=== PATIENT | male | born 1935 | race Caucasian/White ===

== ENCOUNTER 2018-11-13 02:46 | Inpatient (IN) | payer MEDICARE, OTHER ==
[~2018-11-13] VITALS: Ht 167.6 cm; Wt 58.3 kg
[2018-11-13] VITALS (7 sets, daily range): BP systolic 121–147; BP diastolic 65–96; Ht 167.6 cm; Wt 58.3 kg
[2018-11-13] MEDS ORDERED: VITAMIN B-1250 MCG (02:54)
--- NOTE | 2018-11-13 03:31 | NUR ---
PT PLACED ON 2L O2 VIA NC DUE TO O2 SAT 91%
--- NOTE | 2018-11-13 04:28 | NUR ---
PT ARRIVED VIA STRETCHER FROM [place] AT 0248 HRS. PT DENIED ANY DISCOMFORT. WALKED FROM STRETCHER TO BED. GAIT SHUFFLING AND SLIGHTLY UNSEADY WITH ASSIST X2. VSS. SR PER CM HR 79. IV TO RFA SL. LUNGS DIMINISHED IN BASES BILAT. SANTO. [place]. ALERT AND ORIENTED TO PERSON, PLACE AND TIME. O2 2LNC. SMALL RED SPOT NOTED OT L SIDE OF ABD. SMALL BRUISE NOTED TO SMALL OF BACK. SR UP X2, CALL LIGHT WITHIN REACH AND BED ALRM ON.
--- NOTE | 2018-11-13 05:53 | NUR ---
PT RSTING WITH EYES CLOSED. RESP EVEN AND REGULAR. SR UP X2, CALL LIGHT WITHIN REACH AND AT BEDSIDE.
[2018-11-13 06:21] LABS: BASOPHILS 0.4 % (0-2); EOSINOPHILS 1.9 % (0-7); HEMATOCRIT 38.6 % (42.0-54.0); HEMOGLOBIN 12.5 g/dL (13.5-17.5); IMMATURE GRANULOCYTES 0.3 % (0-5); LYMPHOCYTES 11.8 % (15-50); MCH 29.8 pg (26.0-34.0); MCHC 32.4 g/dL (31.0-37.0); MCV 91.9 fL (80.0-100.0); MEAN PLATELET VOLUME 10.5 fL (7.4-10.4); MONOCYTES 11.7 % (2-11); NEUTROPHILS 73.9 % (40-80); PLATELET COUNT 247 10x3/uL (130-400); RDW 14.2 % (11.5-14.5); WBC 7.8 10x3/uL (4.8-10.8)
[2018-11-13 06:46] LABS: CARBON DIOXIDE 27.9 mmol/L (21.0-32.0); CREATININE - SERUM 1.5 mg/dL (0.6-1.3)
[2018-11-13 06:49] LABS: POTASSIUM - SERUM 2.9 mmol/L (3.5-5.1)
--- NOTE | 2018-11-13 11:56 | CN ---
PATIENT NAME:AMELIA WARD MEDICAL RECORD: [id number] : 39 LOCATION:D.[facility] D.2119 ADMIT DATE: 11/13/18 ACCOUNT: [id number] CONSULTING PHYSICIAN: MIN GEORGE MD REFERRING PHYSICIAN: JARETH PADGETT MD DATE OF CONSULTATION: 11/13/2018 HISTORY OF PRESENT ILLNESS: This is an 83-year-old gentleman transferred from [place] for a higher level of care. Apparently, has a history of congestive heart failure and stenting in the past, difficult history from both he and his . Apparently, he has been short of breath over the past week, was flu positive 2-3 weeks ago. reports weight loss, constitutional symptomatology as well. Does describe some orthopnea, PND, and lower extremity edema. PAST MEDICAL HISTORY: Includes: 1. History of coronary artery disease. 2. Congestive heart failure. ALLERGIES: None known. MEDICATIONS: Unknown by 's report. SOCIAL HISTORY: , lives in [place], nonsmoker, nondrinker. does have to assist in ADLs. REVIEW OF SYSTEMS: The patient reports easy bruising but reports no swollen glands. The patient reports no fever, no night sweats, no significant weight gain, no significant weight loss. No significant exercise tolerance. The patient reports no dry eyes, no irritation, no vision change. Patient reports no difficulty hearing and no ear pain. Patient reports no frequent nose bleeds or nose and sinus problems. Patient reports on arm pain on exertion. No shortness of breath while lying down. No history of heart murmur. Patient reports no cough, no wheezing or coughing up blood. Patient reports no abdominal pain, no vomiting. Normal appetite. No diarrhea and not vomiting blood. No nausea and no constipation. Patient reports no incontinence. No difficulty urinating. No hematuria. No increased frequency. Patient reports no muscle aches. No weakness, no arthralgias, no back pain. No swelling of the extremities. Patient reports no abnormal mole, no jaundice, no rashes. Reports no loss of consciousness. No weakness and no numbness. No seizures, dizziness, or headaches. The patient reports no depression, no sleep disturbance, feeling safe in a relationship and no alcohol abuse. Patient reports on fatigue. Reports no runny nose or sinus pressure. No itching, no hives, and no frequent sneezing. PHYSICAL EXAMINATION: GENERAL: Frail appearing elderly gentleman in no acute distress, appears stated age. HEENT: Normocephalic, atraumatic. NECK: No bruits noted. HEART: Regular. LUNGS: Decreased air excursion in both bases. ABDOMEN: Soft, nontender. EXTREMITIES: Pulses decreased 1+ with no edema. IMPRESSION: Certainly symptoms could be consistent with cardiomyopathy. He CONSULT REPORT [id number] AMELIA WARD received Lasix and has improved symptomatically. We will check echocardiographic study. Further recommendations based on the above. TRANSINT:[id number] Voice Confirmation ID: [id number] DOCUMENT ID: [id number] MIN GEORGE MD at 1156 CC: [id number] DICTATION DATE: 11/13/18 1018 GEODESIST: 11/13/18 1118 ADM IN [facility] [address] [place] [address]
--- NOTE | 2018-11-13 13:31 | NUR ---
C/O LEG CRAMPS. FINANCIAL PROFESSIONAL NOTIFIED.
[2018-11-13 15:42] LABS: % SATURATION 8 % (15-55); IRON 31 ug/dl (35-150); TOTAL IRON BIND CAPACITY 381 ug/dl (260-445); UNSAT IRON BIND CAPACITY 350 ug/dl (150-375)
[2018-11-13 16:00] LABS: CKMB 2.3 U/L (0.0-3.6); CREATINE KINASE 58 UL (21-232)
[2018-11-13 16:07] LABS: TROPONIN-I 0.078 ng/mL (0.000-0.060)
--- NOTE | 2018-11-13 19:58 | NUR ---
RECIEVED RESTING IN BED WITH EYES CLOSED. NO S/S OF DISTRESS OBSERVED. SPOUSE AT BEDSIDE. WILL DEFER ASSESSMENT AT THIS TIME. TO ALLOW FOR REST.
--- NOTE | 2018-11-13 20:31 | NUR ---
NOTIFIED DR. RODRIGUEZ (GARAGE DOOR SERVICE TECHNICIAN) WITH NEW ORDER FOR MORPHINE 4 MG Q 4HPRN.
[2018-11-13 20:46] LABS: CKMB 2.5 U/L (0.0-3.6); CREATINE KINASE 66 UL (21-232)
[2018-11-13 20:48] LABS: TROPONIN-I 0.097 ng/mL (0.000-0.060)
--- NOTE | 2018-11-14 01:29 | NUR ---
DR. PADGETT NOTIFIED OF CHANGE IN PATIENT, LAST KNOWN WELL TIME BEING 1899, NO NEW ORDERS RECEIVED AT THIS TIME.
--- NOTE | 2018-11-14 01:30 | NUR ---
CALLED INTO THE ROOM BY STAFF. PT WAS ATTEMPTING TO GET OUT OF THE BED BUT UNABLE. UNABLE TO ANSWER QUESTIONS. SPOUSE AT BEDSIDE AND ATTEMPTED TO GET HIM TO ANSWER QUESTIONS. PT HAD JUST WOKE UP PER SPOUSE. APPEARED CONFUSED AND DISORIENTED. TOOK A DRINK OF WATER WITHOUT DIFFICULTY. MOVING ALL EXTREMITIES. NOT FOLLOWING COMMANDS. GAVE HIM TIME TO WAKE UP AND RETURNED TO ASSESS MENTATION. STILL UNABLE TO FOLLOW COMMANDS. CALLED RAPID. DR. PADGETT NOTIFIED WITH NO NEW ORDERS. WILL DO NEURO CHECKS AND DOCUMENT.
--- NOTE | 2018-11-14 01:42 | NUR ---
PUPILS ARE EQUAL ROUND AND BRISK REACTION. ABLE TO MOVE ALL EXTREMITIES. SPEECH IS IMPROVING. WILL CONT TO ASSESS.
--- NOTE | 2018-11-14 02:32 | NUR ---
NEURO CHECK COMPLETED. SPEECH STILL SLURRED. ABLE TO MOVE RIGHT SIDE OF HIS MOUTH A LITTLE WHEN ATTEMPTING TO SPEAK. MOVES ALL EXTREMITIES ON COMMAND. WILL CONT. TO ASSESS.
--- NOTE | 2018-11-14 03:28 | NUR ---
NEURO CHECK COMPLETED. ABLE TO MOVE ALL EXTREMITIES. PUPILS EQUAL ROUND AND REACTIVE. SPEECH STILL SLURRED.
[2018-11-14 03:50] VITALS: BP 142/85
[2018-11-14 04:59] LABS: BASOPHILS 0.3 % (0-2); EOSINOPHILS 2.8 % (0-7); HEMATOCRIT 38.1 % (42.0-54.0); HEMOGLOBIN 12.2 g/dL (13.5-17.5); IMMATURE GRANULOCYTES 0.3 % (0-5); LYMPHOCYTES 14.6 % (15-50); MCH 29.5 pg (26.0-34.0); MCV 92.3 fL (80.0-100.0); MEAN PLATELET VOLUME 10.1 fL (7.4-10.4); MONOCYTES 11.8 % (2-11); NEUTROPHILS 70.2 % (40-80); PLATELET COUNT 255 10x3/uL (130-400); RBC 4.13 10x6/uL (4.20-6.10)
[2018-11-14 05:45] LABS: CALC OSMOLALITY 290 mosm/kg (275-300); CALCIUM 8.5 mg/dL (8.5-10.1); CARBON DIOXIDE 26.8 mmol/L (21.0-32.0); CHLORIDE - SERUM 102 mmol/L (98-107); CKMB 3.2 U/L (0.0-3.6); CREATINE KINASE 66 UL (21-232); CREATININE - SERUM 1.6 mg/dL (0.6-1.3); GLUCOSE 120 mg/dL (74-106); POTASSIUM - SERUM 3.4 mmol/L (3.5-5.1); SODIUM 142 mmol/L (136-145); UREA NITROGEN 31 mg/dL (7-18); eGFR NON AFRICAN AMERICAN 44 mL/min (90-120)
[2018-11-14 05:52] LABS: TROPONIN-I 0.084 ng/mL (0.000-0.060)
--- NOTE | 2018-11-14 05:52 | NUR ---
NEURO CHECK COMPLETED PUPILS EQUAL ROUND AND REACTIVE. WEAKNESS TO RIGHT SIDE BYT ABLE TO MOVE ALL EXTREMITIES. SPEECH STILL SLURRED. ABLE TO SAY HELLO AND UNDERSTOOD. FOLLOWS COMMANDS. SPOUSE STILL AT BEDSIDE.
--- NOTE | 2018-11-14 09:32 | NUR ---
UNABLE TO SPEAK THIS AM. WEAKNESS NOTED TO RIGHT SIDE. ABLE TO MOVE ARMS AND LEGS. PUPILS REACTIVE. JANENE LINK NOTIFIED OF SYMPTOMS. NEW ORDERS GIVEN.
[2018-11-14 10:04] VITALS: BP 165/41
[2018-11-14 10:18] LABS: FOLATE (FOLIC ACID) - SERUM >20.0 ng/mL (>3.0)
--- NOTE | 2018-11-14 12:35 | NUR ---
LEAVING FOR MRI BY STRETCHER.
--- NOTE | 2018-11-14 16:41 | MORECARE ---
CASE MANAGEMENT DISCHARGE SUMMARY PATIENT: AMELIA WARD UNIT: [id number] ADM DATE: 11/13/18 AGE: 83 : 37 SEX: M ROOM/BED: D.3626 AUTHOR: KRISTEL MARTEL PHYSICIAN: REFERRING PHYSICIAN: JARETH PADGETT MD DATE OF SERVICE: 11/14/18 Discharge Plan Patient Name: AMELIA WARD Facility: [facility]:[place] : 1935 Planned Disposition: Home Anticipated Discharge Date: Discharge Date: Expected LOS: Initial Reviewer: [email or web address] Initial Review Date: 11/13/2018 Generated: 11/14/18 5:41 pm Comments DCP- Discharge Planning Updated by [email or web address]: Tre Da Silva on 11/14/18 3:[address] Patient Name: AMELIA WARD Admission Status: ER Accout number: [id number] Admission Date: 11-13-2018 : 1935 Admission Diagnosis: Attending: JARETH PADGETT Current LOS: 1 Anticipated DC Date: Planned Disposition: Home Primary Insurance: MEDICARE A & B Discharge Planning Comments: CM RECEIVED HOSPICE CONSULT ORDER, MET WITH PT AND FAMILY IN ROOM TO DISCUSS DISCHARGE PLANNING AND NEEDS. AMELIA WARD provided verbal consent to discuss current and ongoing needs with/in the presence of: SPOUSE AND CHILDREN WITH HEAD NOD. PT'S SPOUSE REPORTS PT LIVING AT HOME INDEPENDENTLY WITH HER UNTIL NOW. PT DID HAVE HER ASSISTANCE NEEDED WITH BATHING BUT WAS OTHER CA TAKING CARE OF HIMSELF. PT HAS CPAP WITH NO MEDICAL EQUIPMENT PROVIDER PREFERENCE. PT HAS NO OUTSIDE SERVICES ASSISTING IN THE HOME. CM DISCUSSED AVAILABILITY OF HOME HEALTH, REHAB SERVICES AND MEDICAL EQUIPMENT. CM DISCUSSED HOSPICE PROVIDERS AND LOCATIONS. PT'S DAUGHTER IS AGAINST HOSPICE, PT'S SPOUSE WANTS TO TALK TO THE DOCTOR ABOUT IT FURHTER. PT NODS UNDERSTANDING OF WHAT THE DOCTOR HAS TOLD HIM REGARDING HIS CARE. PT'S CHILDREN REPORT THEY MAY BE TAKING PT HOME AND WILL ASSIST WITH PT'S CARE IF THAT IS WHAT HE WANTS, WITH OR WITHOUT HOSPICE. PT'S CHILDREN WANTED TO MAKE SURE THAT PT'S SPOUSE GETS "EVERYTHING" WHEN PT PASSES AWAY ARE CONCERED THAT PT NEVER COMPLETED A WILL. CM EXPLAINED THAT THEY WOULD NEED TO SEEK ADVISE OF AN HOT WATER HEATER INSTALLER. PT AND SPOUSE TO CONSIDER OPTIONS AND WILL DISCUSS WITH FAMILY AND DOCTOR. CM PROVIDED PT AND FAMILY WITH CM CONTACT INFORMATION AND HOSPITAL FELT STRIP FINISHER INFORMATION. PT'S CHILDRED ARE SANJEEV EASLEY AND GARRISON. CM WAITING PT AND FAMILY TO DISCUSS HOSPICE AND MAKE FURTHER DECISIONS FOR DISCHARGE PLANNING. Branch Operations Coordinator: Tre Da Silva DCPIA - Discharge Planning Initial Assessment Updated by [email or web address]: Tre Da Silva on 11/14/18 4:33 pm * Is the patient Alert and Oriented? Yes * How many steps to enter\\exit or inside your home? * PCP DR. BIRD IN [place] * Pharmacy [facility] [place] * Preadmission Environment Home with Family * ADLs Partial Dependent * Partial ADLs (Assistance needed) Bathing * Equipment CPAP * Other Equipment NO MEDICAL EQUIPMENT PROVIDER PREFERENCE * List name and contact numbers for known caregivers / representatives who currently or will assist patient after discharge: DOC WARD, SPOUSE, * Verbal permission to speak to the caregivers and representatives has been obtained from the patient. Yes * Community resources currently utilized None * Please name any agencies selected above. NONE * Additional services required to return to the preadmission environment? Yes * Can the patient safely return to the preadmission environment? Yes * Has this patient been hospitalized within the prior 30 days at any hospital? No Patient Name: AMELIA WARD Page [id number] at 1641 All edits/amendments must be made on the electronic document DICTATION DATE: 11/14/181640 JIGMAN: ALBERT 11/14/181640 RPT#: [id number] DC DATE: STATUS: ADM IN [facility] [address] [place] [address] END OF REPORT
[2018-11-14 20:00] VITALS: BP 148/84
[2018-11-15 00:30] VITALS: BP 150/69
[2018-11-15 04:00] VITALS: BP 145/84
--- NOTE | 2018-11-15 04:14 | NUR ---
I have reviewed this patient and I concur with the Shift Assessment completed by the Licensed Practical Nurse today this shift.
--- NOTE | 2018-11-15 04:25 | NUR ---
RESTING WITH EYES CLOSED, RESPERATIONS EVEN, NO S/S DISTRESS NOTED.
[2018-11-15 06:12] LABS: BASOPHILS 0.3 % (0-2); EOSINOPHILS 2.4 % (0-7); HEMATOCRIT 41.1 % (42.0-54.0); HEMOGLOBIN 13.1 g/dL (13.5-17.5); IMMATURE GRANULOCYTES 0.2 % (0-5); LYMPHOCYTES 14.6 % (15-50); MCH 29.5 pg (26.0-34.0); MCHC 31.9 g/dL (31.0-37.0); MCV 92.6 fL (80.0-100.0); MONOCYTES 14.1 % (2-11); NEUTROPHILS 68.4 % (40-80); PLATELET COUNT 251 10x3/uL (130-400); RBC 4.44 10x6/uL (4.20-6.10); RDW 14.1 % (11.5-14.5); WBC 6.2 10x3/uL (4.8-10.8)
[2018-11-15 06:46] LABS: ANION GAP 16.9 mmol/L (8-16); CALCIUM 8.7 mg/dL (8.5-10.1); CREATININE - SERUM 1.6 mg/dL (0.6-1.3); POTASSIUM - SERUM 3.9 mmol/L (3.5-5.1)
--- NOTE | 2018-11-15 09:32 | NUR ---
ASSESSMENT DONE. ASSESSMENT DONE.
[2018-11-15 09:45] VITALS: BP 147/86
--- NOTE | 2018-11-15 10:32 | NUR ---
I have reviewed this patient and I concur with the Shift Assessment completed by the Licensed Practical Nurse today this shift.
--- NOTE | 2018-11-15 15:47 | MORECARE ---
CASE MANAGEMENT DISCHARGE SUMMARY PATIENT: AMELIA WARD UNIT: [id number] ADM DATE: 11/13/18 AGE: 83 : 37 SEX: M ROOM/BED: D.9354 AUTHOR: KRISTEL MARTEL PHYSICIAN: REFERRING PHYSICIAN: JARETH PADGETT MD DATE OF SERVICE: 11/15/18 Discharge Plan Patient Name: AMELIA WARD Facility: [facility]:[place] : 1935 Planned Disposition: Home with Home Health Anticipated Discharge Date: 11/15/18 Discharge Date: Expected LOS: 2 Initial Reviewer: [email or web address] Initial Review Date: 11/13/2018 Generated: 11/15/18 4:46 pm DCP- Discharge Planning Updated by [email or web address]: Tre Da Silva on 11/14/18 3:[address] Patient Name: AMELIA WARD Admission Status: ER Accout number: [id number] Admission Date: 11-13-2018 : 1935 Admission Diagnosis: Attending: JARETH PADGETT Current LOS: 1 Anticipated DC Date: Planned Disposition: Home Primary Insurance: MEDICARE A & B Discharge Planning Comments: CM RECEIVED HOSPICE CONSULT ORDER, MET WITH PT AND FAMILY IN ROOM TO DISCUSS DISCHARGE PLANNING AND NEEDS. AMELIA WARD provided verbal consent to discuss current and ongoing needs with/in the presence of: SPOUSE AND CHILDREN WITH HEAD NOD. PT'S SPOUSE REPORTS PT LIVING AT HOME INDEPENDENTLY WITH HER UNTIL NOW. PT DID HAVE HER ASSISTANCE NEEDED WITH BATHING BUT WAS OTHER CA TAKING CARE OF HIMSELF. PT HAS CPAP WITH NO MEDICAL EQUIPMENT PROVIDER PREFERENCE. PT HAS NO OUTSIDE SERVICES ASSISTING IN THE HOME. CM DISCUSSED AVAILABILITY OF HOME HEALTH, REHAB SERVICES AND MEDICAL EQUIPMENT. CM DISCUSSED HOSPICE PROVIDERS AND LOCATIONS. PT'S DAUGHTER IS AGAINST HOSPICE, PT'S SPOUSE WANTS TO TALK TO THE DOCTOR ABOUT IT FURHTER. PT NODS UNDERSTANDING OF WHAT THE DOCTOR HAS TOLD HIM REGARDING HIS CARE. PT'S CHILDREN REPORT THEY MAY BE TAKING PT HOME AND WILL ASSIST WITH PT'S CARE IF THAT IS WHAT HE WANTS, WITH OR WITHOUT HOSPICE. PT'S CHILDREN WANTED TO MAKE SURE THAT PT'S SPOUSE GETS "EVERYTHING" WHEN PT PASSES AWAY ARE CONCERED THAT PT NEVER COMPLETED A WILL. CM EXPLAINED THAT THEY WOULD NEED TO SEEK ADVISE OF AN SUPERVISOR INSPECTION DEPARTMENT. PT AND SPOUSE TO CONSIDER OPTIONS AND WILL DISCUSS WITH FAMILY AND DOCTOR. CM PROVIDED PT AND FAMILY WITH CM CONTACT INFORMATION AND HOSPITAL CASE RESOLUTION SPECIALIST INFORMATION. PT'S CHILDRED ARE SANJEEV EASLEY AND GARRISON. CM WAITING PT AND FAMILY TO DISCUSS HOSPICE AND MAKE FURTHER DECISIONS FOR DISCHARGE PLANNING. Save All Operator: Tre Da Silva DCPIA - Discharge Planning Initial Assessment Updated by [id number]: Tre Da Silva on 11/14/18 4:33 pm * Is the patient Alert and Oriented? Yes * How many steps to enter\\exit or inside your home? * PCP DR. BIRD IN [place] * Pharmacy [facility] [place] * Preadmission Environment Home with Family * ADLs Partial Dependent * Partial ADLs (Assistance needed) Bathing * Equipment CPAP * Other Equipment NO MEDICAL EQUIPMENT PROVIDER PREFERENCE * List name and contact numbers for known caregivers / representatives who currently or will assist patient after discharge: DOC WARD, SPOUSE, * Verbal permission to speak to the caregivers and representatives has been obtained from the patient. Yes * Community resources currently utilized None * Please name any agencies selected above. NONE * Additional services required to return to the preadmission environment? Yes * Can the patient safely return to the preadmission environment? Yes * Has this patient been hospitalized within the prior 30 days at any hospital? No External [facility]iders [facility] Next Contact Date: 11/15/2018 Service Request Date: Service Type: Resolution: Reviewer: Comments: Coverage Notice Reviewer: [email or web address] Lauren Da Silva Notice Issued Date-Time: 11/15/2018 14:55 Notice Type: IM Discharge Notice Notice Delivered To: Family Member Relationship to Patient: Spouse Brick Or Block Maker Name: DOC WARD Delivery Method: HAND - Hand Delivered Amrita Days: Prior Verbal Notification: Recipient Understood Notice: Yes Recipient Signature: Yes Med Rec Note Co-signed by Attending: Coverage Notice Comment: Reviewer: [email or web address] Lauren Da Silva Notice Issued Date-Time: 11/15/2018 14:55 Notice Type: Patient Choice Letter Notice Delivered To: Family Member Relationship to Patient: Spouse Brick Or Block Maker Name: DOC Delivery Method: HAND - Hand Delivered Amrita Days: Prior Verbal Notification: Recipient Understood Notice: Yes Recipient Signature: Yes Med Rec Note Co-signed by Attending: Coverage Notice Comment: [employer] [facility] PATIENT FOR MEDICAL EQUIPMENT Last DP export: 11/14/18 3:41 p Patient Name: AMELIA WARD Page 10405 at 1547 All edits/amendments must be made on the electronic document DICTATION DATE: 11/15/181545 PIPELINE ENGINEER: ALBERT 11/15/181545 RPT#: [id number] DC DATE: STATUS: ADM IN [facility] [address] [place] [address] END OF REPORT
--- NOTE | 2018-11-15 16:05 | MORECARE ---
CASE MANAGEMENT DISCHARGE SUMMARY PATIENT: AMELIA WARD UNIT: [id number] ADM DATE: 11/13/18 AGE: 83 : 37 SEX: M ROOM/BED: D.2004 AUTHOR: DELONTE,DOC PHYSICIAN: REFERRING PHYSICIAN: JARETH PADGETT MD DATE OF SERVICE: 11/15/18 Discharge Plan Patient Name: AMELIA WARD Facility: [facility]:[place] : 1935 Planned Disposition: Home with Home Health Anticipated Discharge Date: 11/15/18 Discharge Date: Expected LOS: 2 Initial Reviewer: [email or web address] Initial Review Date: 11/13/2018 Generated: 11/15/18 5:05 pm Comments DCP- Discharge Planning Updated by [email or web address]: Tre Da Silva on 11/15/18 3:[address] Patient Name: AMELIA WARD Encounter No: [id number] : 1935 Primary Insurance: MEDICARE A & B Anticipated DC Date: 11-15-2018 Planned Disposition: Home with Home Health External Planned Provider: [email or web address] [facility] DCP follow-up note: CM SPOKE TO DR. PADGETT WHO ADVISED THAT PT CAN DISCHARGE HOME TODAY IF OXYGEN IS ARRANGED IF PT QUALIFIES AND NEEDS WALK TESTING. CM OBTAINED OXYGEN TESTING ORDERS, WAS ADVISED REPIRATORY THERAPIST WAS WORKING ON EXTUBATION AND WOULD TAKE CARE OF TESTING SHORTLY. CM MET WITH PT AND SPOUSE IN ROOM, PT INDICATES HE IS READY TO GO HOME. CM DISCUSSED PROCESS OF OXYGEN TESTING AND IF QUALIFIES, CM TO ARRANGE HOME OXYGEN. CM DISCUSSED AVAILABILITY OF HOME HEALTH, REHAB SERVICES AND OTHER MEDICAL EQUIPMENT. PT POINTS TO . PT'S SPOUSE PROVIDED WITH LISTINGS FOR MEDICAL EQUIPMENT PROVIDERS AND HOME HEALTH PROVIDERS. PT'S SPOUSE SIGNED CHOICE FOR [facility] AND [facility] PATIENT FOR OXYGEN IF PT QUALIFIES. SPOUSE TO TRANSPORT HOME AT DISCHARGE. IMPORTANT MESSAGE FROM MEDICARE PROVIDED AND EXPLAINED. CM CALLED [facility], [place] OFFICE, , SPOKE TO SHIRA WHO ACCEPTED REFERRAL FOR HOME HEALTH AND INSTRUCTED CM TO CALL WHEN PT DISCHARGES HOME. CM FAXED REFERRAL TO [facility] AT [phone]. FOR DISCHARGE FAX ORDER AND DISCHARGE INFORMATION TO [facility] OFFICE AT [phone], CALL AND NOTIFY [facility] OF DISCHARGE HOME AT [phone]. CM TO ARRANGE HOME AND PORTABLE OXYGENWITH [facility] PATIENT IF PT QUALIFIES DURING TESTING BY RESPIRATORY THERAPY PRIOR TO DISCHARGE HOME. Tre Da Silva, CASE MANAGEMENT DCP- Discharge Planning Updated by [email or web address]: Tre Da Silva on 11/14/18 3:[address] Patient Name: AMELIA WARD Admission Status: ER Accout number: [id number] Admission Date: 11-13-2018 : 1935 Admission Diagnosis: Attending: JARETH PADGETT Current LOS: 1 Anticipated DC Date: Planned Disposition: Home Primary Insurance: MEDICARE A & B Discharge Planning Comments: CM RECEIVED HOSPICE CONSULT ORDER, MET WITH PT AND FAMILY IN ROOM TO DISCUSS DISCHARGE PLANNING AND NEEDS. AMELIA WARD provided verbal consent to discuss current and ongoing needs with/in the presence of: SPOUSE AND CHILDREN WITH HEAD NOD. PT'S SPOUSE REPORTS PT LIVING AT HOME INDEPENDENTLY WITH HER UNTIL NOW. PT DID HAVE HER ASSISTANCE NEEDED WITH BATHING BUT WAS OTHER CA TAKING CARE OF HIMSELF. PT HAS CPAP WITH NO MEDICAL EQUIPMENT PROVIDER PREFERENCE. PT HAS NO OUTSIDE SERVICES ASSISTING IN THE HOME. CM DISCUSSED AVAILABILITY OF HOME HEALTH, REHAB SERVICES AND MEDICAL EQUIPMENT. CM DISCUSSED HOSPICE PROVIDERS AND LOCATIONS. PT'S DAUGHTER IS AGAINST HOSPICE, PT'S SPOUSE WANTS TO TALK TO THE DOCTOR ABOUT IT FURHTER. PT NODS UNDERSTANDING OF WHAT THE DOCTOR HAS TOLD HIM REGARDING HIS CARE. PT'S CHILDREN REPORT THEY MAY BE TAKING PT HOME AND WILL ASSIST WITH PT'S CARE IF THAT IS WHAT HE WANTS, WITH OR WITHOUT HOSPICE. PT'S CHILDREN WANTED TO MAKE SURE THAT PT'S SPOUSE GETS "EVERYTHING" WHEN PT PASSES AWAY ARE CONCERED THAT PT NEVER COMPLETED A WILL. CM EXPLAINED THAT THEY WOULD NEED TO SEEK ADVISE OF AN LANDFILL ATTENDANT. PT AND SPOUSE TO CONSIDER OPTIONS AND WILL DISCUSS WITH FAMILY AND DOCTOR. CM PROVIDED PT AND FAMILY WITH CM CONTACT INFORMATION AND HOSPITAL RIDES SUPERVISOR INFORMATION. PT'S CHILDRED ARE SANJEEV EASLEY AND GARRISON. CM WAITING PT AND FAMILY TO DISCUSS HOSPICE AND MAKE FURTHER DECISIONS FOR DISCHARGE PLANNING. Beautician Apprentice: Tre Da Silva DCPIA - Discharge Planning Initial Assessment Updated by [id number]: Tre Da Silva on 11/14/18 4:33 pm * Is the patient Alert and Oriented? Yes * How many steps to enter\\exit or inside your home? * PCP DR. BIRD IN [place] * Pharmacy [facility] [place] * Preadmission Environment Home with Family * ADLs Partial Dependent * Partial ADLs (Assistance needed) Bathing * Equipment CPAP * Other Equipment NO MEDICAL EQUIPMENT PROVIDER PREFERENCE * List name and contact numbers for known caregivers / representatives who currently or will assist patient after discharge: DOC WARD, SPOUSE, * Verbal permission to speak to the caregivers and representatives has been obtained from the patient. Yes * Community resources currently utilized None * Please name any agencies selected above. NONE * Additional services required to return to the preadmission environment? Yes * Can the patient safely return to the preadmission environment? Yes * Has this patient been hospitalized within the prior 30 days at any hospital? No Coverage Notice Reviewer: [email or web address] Da Silva Notice Issued Date-Time: 11/15/2018 14:55 Notice Type: IM Discharge Notice Notice Delivered To: Family Member Relationship to Patient: Spouse Drainage Design Coordinator Name: DOC WARD Delivery Method: HAND - Hand Delivered Amrita Days: Prior Verbal Notification: Recipient Understood Notice: Yes Recipient Signature: Yes Med Rec Note Co-signed by Attending: Coverage Notice Comment: Reviewer: [id number] Da Silva Notice Issued Date-Time: 11/15/2018 14:55 Notice Type: Patient Choice Letter Notice Delivered To: Family Member Relationship to Patient: Spouse Drainage Design Coordinator Name: DOC Delivery Method: HAND - Hand Delivered Amrita Days: Prior Verbal Notification: Recipient Understood Notice: Yes Recipient Signature: Yes Med Rec Note Co-signed by Attending: Coverage Notice Comment: [facility] PATIENT FOR MEDICAL EQUIPMENT Last DP export: 11/15/18 2:47 p Patient Name: AMELIA WARD Page 12533 at 1605 All edits/amendments must be made on the electronic document DICTATION DATE: 11/15/18 1605 AUTO HIKER: ALBERT 11/15/18 1605 RPT#: [id number] DC DATE: STATUS: ADM IN [facility] [address] [place] [address] END OF REPORT
--- NOTE | 2018-11-15 16:50 | NUR ---
FAMILY AT SIDE. WITHOUT CHANGES OR DISTRESS NOTED AT THIS TIME. DENIES NEEDS.
[2018-11-15 17:54] VITALS: BP 147/87
[2018-11-15 18:31] VITALS: BP 128/76
--- NOTE | 2018-11-15 19:25 | NUR ---
RESUMING PATIENT CARE. PATIENT RESTING COMFORTABLY IN BED. RESPIRATIONS ARE EVEN AND UNLABORED. NO S/S OF DISTRESS. DENIES PAIN AT THIS TIME. FAMILY AT BEDSIDE. CALL LIGHT WITHIN REACH. WILL CPOC.
[2018-11-15 22:36] VITALS: BP 139/83
[2018-11-16 06:06] VITALS: BP 143/81
[2018-11-16 07:12] LABS: BASOPHILS 0.7 % (0-2); EOSINOPHILS 3.9 % (0-7); HEMATOCRIT 41.9 % (42.0-54.0); HEMOGLOBIN 13.4 g/dL (13.5-17.5); IMMATURE GRANULOCYTES 0.1 % (0-5); LYMPHOCYTES 14.3 % (15-50); MCH 29.7 pg (26.0-34.0); MCV 92.9 fL (80.0-100.0); MEAN PLATELET VOLUME 10.3 fL (7.4-10.4); MONOCYTES 12.1 % (2-11); NEUTROPHILS 68.9 % (40-80); PLATELET COUNT 255 10x3/uL (130-400); RBC 4.51 10x6/uL (4.20-6.10); RDW 14.1 % (11.5-14.5)
[2018-11-16 07:21] LABS: ANION GAP 13.8 mmol/L (8-16); CALCIUM 8.6 mg/dL (8.5-10.1); CARBON DIOXIDE 28.8 mmol/L (21.0-32.0); CREATININE - SERUM 1.7 mg/dL (0.6-1.3); POTASSIUM - SERUM 3.6 mmol/L (3.5-5.1)
--- NOTE | 2018-11-16 07:30 | NUR ---
ALERT AND ORIENTED. FAMILY AT BEDSIDE. UP WALKING WITH FAMILY. FLORENTIN LOVING YES AND NO QUESTIONS.FAMILY AT BEDSIDE. TENORIO CATH PATENT TO GRAVITY BAG. CALL LIGHT IN REACH. TELEMERTY SHOWS SR.
[2018-11-16 09:06] VITALS: BP 128/75
--- NOTE | 2018-11-16 09:23 | MORECARE ---
CASE MANAGEMENT DISCHARGE SUMMARY PATIENT: AMELIA WARD UNIT: [id number] ADM DATE: 11/13/18 AGE: 83 : 37 SEX: M ROOM/BED: D.2458 AUTHOR: DELONTE,DOC PHYSICIAN: REFERRING PHYSICIAN: JARETH PADGETT MD DATE OF SERVICE: 11/16/18 Discharge Plan Patient Name: AMELIA WARD Facility: [facility]:[place] : 1935 Planned Disposition: Home with Home Health Anticipated Discharge Date: 11/15/18 Discharge Date: Expected LOS: 2 Initial Reviewer: [id number] Initial Review Date: 11/13/2018 Generated: 11/16/18 10:23 am Comments DCP- Discharge Planning Updated by [id number]: Tre Da Silva on 11/16/18 8:[address] Patient Name: AMELIA WARD Encounter No: [id number] : 1935 Primary Insurance: MEDICARE A & B Anticipated DC Date: 11-15-2018 Planned Disposition: Home with Home Health External Planned Provider:[facility] DCP follow-up note: CM SPOKE TO OF RESPIRATORY, ASKED FOR HOME OXYGEN TESTING THE ORDER WAS NOT COMPLETED YESTERDAY AFTERNOON. [facility] COMPLETED TESTING, PT WAS 97% ON ROOM AIR WITH AMBULATION, DID NOT QUALIFY FOR HOME OXYGEN. PT HAS BEEN ACCEPTED BY [facility] [place] OFFICE, . FOR DISCHARGE FAX ORDER AND DISCHARGE INFORMATION TO [facility] OFFICE AT [phone], CALL AND NOTIFY [facility] OF DISCHARGE HOME AT [phone]. PT DID NOT QUALIFY OF HOME OXYGEN. Tre Da Silva, CASE MANAGEMENT DCP- Discharge Planning Updated by [id number]: Tre Da Silva on 11/15/18 3:[address] Patient Name: AMELIA WARD Encounter No: [id number] : 1935 Primary Insurance: MEDICARE A & B Anticipated DC Date: 11-15-2018 Planned Disposition: Home with Home Health External Planned Provider: [facility] DCP follow-up note: CM SPOKE TO DR. PADGETT WHO ADVISED THAT PT CAN DISCHARGE HOME TODAY IF OXYGEN IS ARRANGED IF PT QUALIFIES AND NEEDS WALK TESTING. CM OBTAINED OXYGEN TESTING ORDERS, WAS ADVISED REPIRATORY THERAPIST WAS WORKING ON EXTUBATION AND WOULD TAKE CARE OF TESTING SHORTLY. CM MET WITH PT AND SPOUSE IN ROOM, PT INDICATES HE IS READY TO GO HOME. CM DISCUSSED PROCESS OF OXYGEN TESTING AND IF QUALIFIES, CM TO ARRANGE HOME OXYGEN. CM DISCUSSED AVAILABILITY OF HOME HEALTH, REHAB SERVICES AND OTHER MEDICAL EQUIPMENT. PT POINTS TO . PT'S SPOUSE PROVIDED WITH LISTINGS FOR MEDICAL EQUIPMENT PROVIDERS AND HOME HEALTH PROVIDERS. PT'S SPOUSE SIGNED CHOICE FOR [facility] AND [facility] FOR OXYGEN IF PT QUALIFIES. SPOUSE TO TRANSPORT HOME AT DISCHARGE. IMPORTANT MESSAGE FROM MEDICARE PROVIDED AND EXPLAINED. CM CALLED [facility] OFFICE, , SPOKE TO SHIRA WHO ACCEPTED REFERRAL FOR HOME HEALTH AND INSTRUCTED CM TO CALL WHEN PT DISCHARGES HOME. CM FAXED REFERRAL TO [facility] AT [phone]. FOR DISCHARGE FAX ORDER AND DISCHARGE INFORMATION TO [facility] OFFICE AT [phone], CALL AND NOTIFY [facility] OF DISCHARGE HOME AT [phone]. CM TO ARRANGE HOME AND PORTABLE OXYGENWITH [facility] PAT[facility] IF PT QUALIFIES DURING TESTING BY RESPIRATORY THERAPY PRIOR TO DISCHARGE HOME. Tre Da Silva, CASE MANAGEMENT DCP- Discharge Planning Updated by [id number]: Tre Da Silva on 11/14/18 3:[address] Patient Name: AMELIA WARD Admission Status: ER Accout number: [id number] Admission Date: 11-13-2018 : 1935 Admission Diagnosis: Attending: JARETH PADGETT Current LOS: 1 Anticipated DC Date: Planned Disposition: Home Primary Insurance: MEDICARE A & B Discharge Planning Comments: CM RECEIVED HOSPICE CONSULT ORDER, MET WITH PT AND FAMILY IN ROOM TO DISCUSS DISCHARGE PLANNING AND NEEDS. AMELIA WRAD provided verbal consent to discuss current and ongoing needs with/in the presence of: SPOUSE AND CHILDREN WITH HEAD NOD. PT'S SPOUSE REPORTS PT LIVING AT HOME INDEPENDENTLY WITH HER UNTIL NOW. PT DID HAVE HER ASSISTANCE NEEDED WITH BATHING BUT WAS OTHER CA TAKING CARE OF HIMSELF. PT HAS CPAP WITH NO MEDICAL EQUIPMENT PROVIDER PREFERENCE. PT HAS NO OUTSIDE SERVICES ASSISTING IN THE HOME. CM DISCUSSED AVAILABILITY OF HOME HEALTH, REHAB SERVICES AND MEDICAL EQUIPMENT. CM DISCUSSED HOSPICE PROVIDERS AND LOCATIONS. PT'S DAUGHTER IS AGAINST HOSPICE, PT'S SPOUSE WANTS TO TALK TO THE DOCTOR ABOUT IT FURHTER. PT NODS UNDERSTANDING OF WHAT THE DOCTOR HAS TOLD HIM REGARDING HIS CARE. PT'S CHILDREN REPORT THEY MAY BE TAKING PT HOME AND WILL ASSIST WITH PT'S CARE IF THAT IS WHAT HE WANTS, WITH OR WITHOUT HOSPICE. PT'S CHILDREN WANTED TO MAKE SURE THAT PT'S SPOUSE GETS "EVERYTHING" WHEN PT PASSES AWAY ARE CONCERED THAT PT NEVER COMPLETED A WILL. CM EXPLAINED THAT THEY WOULD NEED TO SEEK ADVISE OF AN HOME SCHOOL COORDINATOR. PT AND SPOUSE TO CONSIDER OPTIONS AND WILL DISCUSS WITH FAMILY AND DOCTOR. CM PROVIDED PT AND FAMILY WITH CM CONTACT INFORMATION AND HOSPITAL PHOTO STYLIST INFORMATION. PT'S CHILDRED ARE TRACEE, SANJEEV AND GARRISON. CM WAITING PT AND FAMILY TO DISCUSS HOSPICE AND MAKE FURTHER DECISIONS FOR DISCHARGE PLANNING. Information Security Specialist: [facility] - [facility] Planning Initial Assessment Updated by [id number]: Tre Da Silva on 11/14/18 4:33 pm * Is the patient Alert and Oriented? Yes * How many steps to enter\\exit or inside your home? * PCP DR. BIRD IN [place] * Pharm[facility] [place] * Preadmission Environment Home with Family * ADLs Partial Dependent * Partial ADLs (Assistance needed) Bathing * Equipment CPAP * Other Equipment NO MEDICAL EQUIPMENT PROVIDER PREFERENCE * List name and contact numbers for known caregivers / representatives who currently or will assist patient after discharge: DOC WARD, SPOUSE, * Verbal permission to speak to the caregivers and representatives has been obtained from the patient. Yes * Community resources currently utilized None * Please name any agencies selected above. NONE * Additional services required to return to the preadmission environment? Yes * Can the patient safely return to the preadmission environment? Yes * Has this patient been hospitalized within the prior 30 days at any hospital? No Coverage Notice Reviewer: [id number] Lauren Da Silva Notice Issued Date-Time: 11/15/2018 14:55 Notice Type: IM Discharge Notice Notice Delivered To: Family Member Relationship to Patient: Spouse Child Psychology Teacher Name: DOC WARD Delivery Method: HAND - Hand Delivered Amrita Days: Prior Verbal Notification: Recipient Understood Notice: Yes Recipient Signature: Yes Med Rec Note Co-signed by Attending: Coverage Notice Comment: Reviewer: [id number] Lauren Da Silva Notice Issued Date-Time: 11/15/2018 14:55 Notice Type: Patient Choice Letter Notice Delivered To: Family Member Relationship to Patient: Spouse Child Psychology Teacher Name: DOC Delivery Method: HAND - Hand Delivered Amrita Days: Prior Verbal Notification: Recipient Understood Notice: Yes Recipient Signature: Yes Med Rec Note Co-signed by Attending: Coverage Notice Comment: [facility] FOR MEDICAL EQUIPMENT Last DP export: 11/15/18 3:05 p Patient Name: AMELIA WARD Page 13187 at 0923 All edits/amendments must be made on the electronic document DICTATION DATE: 11/16/18922 RIVER GUIDE: ALBERT 11/16/18922 RPT#: [id number] DC DATE: STATUS: ADM IN [facility] [address] [place] [address] END OF REPORT
--- NOTE | 2018-11-16 09:32 | MORECARE ---
CASE MANAGEMENT DISCHARGE SUMMARY PATIENT: AMELIA WARD UNIT: [id number] ADM DATE: 11/13/18 AGE: 83 : 37 SEX: M ROOM/BED: D.6346 AUTHOR: DELONTEDOC PHYSICIAN: REFERRING PHYSICIAN: JARETH PADGETT MD DATE OF SERVICE: 11/16/18 Discharge Plan Patient Name: AMELIA WARD Facility: [facility]:[place] : 1935 Planned Disposition: Home with Home Health Anticipated Discharge Date: 11/15/18 Discharge Date: Expected LOS: 2 Initial Reviewer: [email or web address] Initial Review Date: 11/13/2018 Generated: 11/16/18 10:32 am Comments DCP- Discharge Planning Updated by [id number]: Tre Da Silva on 11/16/18 8:[address] Patient Name: AMELIA WARD Encounter No: [id number] : 1935 Primary Insurance: MEDICARE A & B Anticipated DC Date: 11-15-2018 Planned Disposition: Home with Home Health External Planned Provider:[facility] DCP follow-up note: CM SPOKE TO OF RESPIRATORY, ASKED FOR HOME OXYGEN TESTING THE ORDER WAS NOT COMPLETED YESTERDAY AFTERNOON. [place] COMPLETED TESTING, PT WAS 97% ON ROOM AIR WITH AMBULATION, DID NOT QUALIFY FOR HOME OXYGEN. PT HAS BEEN ACCEPTED BY [facility], [place] OFFICE, . FOR DISCHARGE FAX ORDER AND DISCHARGE INFORMATION TO [facility] OFFICE AT [phone], CALL AND NOTIFY [facility] OF DISCHARGE HOME AT [phone]. PT DID NOT QUALIFY FOR HOME OXYGEN. Tre Da Silva, CASE MANAGEMENT DCP- Discharge Planning Updated by [id number]: Tre Da Silva on 11/15/18 3:[address] Patient Name: AMELIA WARD Encounter No: [id number] : 1935 Primary Insurance: MEDICARE A & B Anticipated DC Date: 11-15-2018 Planned Disposition: Home with Home Health External Planned Provider: [facility] DCP follow-up note: CM SPOKE TO DR. PADGETT WHO ADVISED THAT PT CAN DISCHARGE HOME TODAY IF OXYGEN IS ARRANGED IF PT QUALIFIES AND NEEDS WALK TESTING. CM OBTAINED OXYGEN TESTING ORDERS, WAS ADVISED REPIRATORY THERAPIST WAS WORKING ON EXTUBATION AND WOULD TAKE CARE OF TESTING SHORTLY. CM MET WITH PT AND SPOUSE IN ROOM, PT INDICATES HE IS READY TO GO HOME. CM DISCUSSED PROCESS OF OXYGEN TESTING AND IF QUALIFIES, CM TO ARRANGE HOME OXYGEN. CM DISCUSSED AVAILABILITY OF HOME HEALTH, REHAB SERVICES AND OTHER MEDICAL EQUIPMENT. PT POINTS TO . PT'S SPOUSE PROVIDED WITH LISTINGS FOR MEDICAL EQUIPMENT PROVIDERS AND HOME HEALTH PROVIDERS. PT'S SPOUSE SIGNED CHOICE FOR [facility] AND [facility] FOR OXYGEN IF PT QUALIFIES. SPOUSE TO TRANSPORT HOME AT DISCHARGE. IMPORTANT MESSAGE FROM MEDICARE PROVIDED AND EXPLAINED. CM CALLED [facility] OFFICE, , SPOKE TO SHIRA WHO ACCEPTED REFERRAL FOR HOME HEALTH AND INSTRUCTED CM TO CALL WHEN PT DISCHARGES HOME. CM FAXED REFERRAL TO [facility] AT [phone]. FOR DISCHARGE FAX ORDER AND DISCHARGE INFORMATION TO [facility] OFFICE AT [phone], CALL AND NOTIFY [facility] OF DISCHARGE HOME AT [phone]. CM TO ARRANGE HOME AND PORTABLE OXYGENWITH [facility] PATIENT IF PT QUALIFIES DURING TESTING BY RESPIRATORY THERAPY PRIOR TO DISCHARGE HOME. Tre Da Silva, CASE MANAGEMENT DCP- Discharge Planning Updated by [id number]: Tre Da Silva on 11/14/18 3:[address] Patient Name: AMELIA WARD Admission Status: ER Accout number: [id number] Admission Date: 11-13-2018 : 1935 Admission Diagnosis: Attending: JARETH PADGETT Current LOS: 1 Anticipated DC Date: Planned Disposition: Home Primary Insurance: MEDICARE A & B Discharge Planning Comments: CM RECEIVED HOSPICE CONSULT ORDER, MET WITH PT AND FAMILY IN ROOM TO DISCUSS DISCHARGE PLANNING AND NEEDS. AMELIA WARD provided verbal consent to discuss current and ongoing needs with/in the presence of: SPOUSE AND CHILDREN WITH HEAD NOD. PT'S SPOUSE REPORTS PT LIVING AT HOME INDEPENDENTLY WITH HER UNTIL NOW. PT DID HAVE HER ASSISTANCE NEEDED WITH BATHING BUT WAS OTHER CA TAKING CARE OF HIMSELF. PT HAS CPAP WITH NO MEDICAL EQUIPMENT PROVIDER PREFERENCE. PT HAS NO OUTSIDE SERVICES ASSISTING IN THE HOME. CM DISCUSSED AVAILABILITY OF HOME HEALTH, REHAB SERVICES AND MEDICAL EQUIPMENT. CM DISCUSSED HOSPICE PROVIDERS AND LOCATIONS. PT'S DAUGHTER IS AGAINST HOSPICE, PT'S SPOUSE WANTS TO TALK TO THE DOCTOR ABOUT IT FURHTER. PT NODS UNDERSTANDING OF WHAT THE DOCTOR HAS TOLD HIM REGARDING HIS CARE. PT'S CHILDREN REPORT THEY MAY BE TAKING PT HOME AND WILL ASSIST WITH PT'S CARE IF THAT IS WHAT HE WANTS, WITH OR WITHOUT HOSPICE. PT'S CHILDREN WANTED TO MAKE SURE THAT PT'S SPOUSE GETS "EVERYTHING" WHEN PT PASSES AWAY ARE CONCERED THAT PT NEVER COMPLETED A WILL. CM EXPLAINED THAT THEY WOULD NEED TO SEEK ADVISE OF AN POLICY AND PLANNING MANAGER. PT AND SPOUSE TO CONSIDER OPTIONS AND WILL DISCUSS WITH FAMILY AND DOCTOR. CM PROVIDED PT AND FAMILY WITH CM CONTACT INFORMATION AND HOSPITAL WIRE INSULATOR INFORMATION. PT'S CHILDRED ARE TRACEE, SANJEEV AND GARRISON. CM WAITING PT AND FAMILY TO DISCUSS HOSPICE AND MAKE FURTHER DECISIONS FOR DISCHARGE PLANNING. Counter Molder: [facility] - Discharge Planning Initial Assessment Updated by [id number]: Tre Da Silva on 11/14/18 4:33 pm * Is the patient Alert and Oriented? Yes * How many steps to enter\\exit or inside your home? * PCP DR. BIRD IN [place] * Pharmacy [facility] IN [place] * Preadmission Environment Home with Family * ADLs Partial Dependent * Partial ADLs (Assistance needed) Bathing * Equipment CPAP * Other Equipment NO MEDICAL EQUIPMENT PROVIDER PREFERENCE * List name and contact numbers for known caregivers / representatives who currently or will assist patient after discharge: DOC WARD, SPOUSE, * Verbal permission to speak to the caregivers and representatives has been obtained from the patient. Yes * Community resources currently utilized None * Please name any agencies selected above. NONE * Additional services required to return to the preadmission environment? Yes * Can the patient safely return to the preadmission environment? Yes * Has this patient been hospitalized within the prior 30 days at any hospital? No Coverage Notice Reviewer: [id number] Lauren Da Silva Notice Issued Date-Time: 11/15/2018 14:55 Notice Type: IM Discharge Notice Notice Delivered To: Family Member Relationship to Patient: Spouse Supervisor Telephone Information Name: DOC WARD Delivery Method: HAND - Hand Delivered Amrita Days: Prior Verbal Notification: Recipient Understood Notice: Yes Recipient Signature: Yes Med Rec Note Co-signed by Attending: Coverage Notice Comment: Reviewer: [id number] Lauren Da Silva Notice Issued Date-Time: 11/15/2018 14:55 Notice Type: Patient Choice Letter Notice Delivered To: Family Member Relationship to Patient: Spouse Supervisor Telephone Information Name: DOC Delivery Method: HAND - Hand Delivered Amrita Days: Prior Verbal Notification: Recipient Understood Notice: Yes Recipient Signature: Yes Med Rec Note Co-signed by Attending: Coverage Notice Comment: [facility] FOR MEDICAL EQUIPMENT Last DP export: 11/16/18 8:23 a Patient Name: AMELIA WARD Page 75085 at 0932 All edits/amendments must be made on the electronic document DICTATION DATE: 11/16/18930 GROUND OPERATIONS SUPERVISOR: ALBERT 11/16/18930 RPT#: [id number] DC DATE: STATUS: ADM IN [facility] [address] [place] [address] END OF REPORT
[2018-11-16] MEDS ORDERED: LASIX40 MG PO (09:54)
[2018-11-16] MEDS ORDERED: POTASSIUM CHLO20 MEQ PO (09:54)
--- NOTE | 2018-11-16 10:07 | MORECARE ---
CASE MANAGEMENT DISCHARGE SUMMARY PATIENT: AMELIA WARD UNIT: [id number] ADM DATE: 11/13/18 AGE: 83 : 37 SEX: M ROOM/BED: D.6736 AUTHOR: DELONTE,DOC PHYSICIAN: REFERRING PHYSICIAN: JARETH PADGETT MD DATE OF SERVICE: 11/16/18 Discharge Plan Patient Name: AMELIA WARD Facility: [facility]:[place] : 1935 Planned Disposition: Home with Home Health Anticipated Discharge Date: 11/15/18 Discharge Date: Expected LOS: 2 Initial Reviewer: [id number] Initial Review Date: 11/13/2018 Generated: 11/16/18 11:07 am Comments DCP- Discharge Planning Updated by [id number]: Tre Da Silva on 11/16/18 8:[address] Patient Name: AMELIA WARD Encounter No: [id number] : 1935 Primary Insurance: MEDICARE A & B Anticipated DC Date: 11-15-2018 Planned Disposition: Home with Home Health External Planned Provider:[facility] DCP follow-up note: CM SPOKE TO OF RESPIRATORY, ASKED FOR HOME OXYGEN TESTING THE ORDER WAS NOT COMPLETED YESTERDAY AFTERNOON. [place] COMPLETED TESTING, PT WAS 97% ON ROOM AIR WITH AMBULATION, DID NOT QUALIFY FOR HOME OXYGEN. PT HAS BEEN ACCEPTED BY [facility], [place] OFFICE, . FOR DISCHARGE FAX ORDER AND DISCHARGE INFORMATION TO [facility] OFFICE AT [phone], CALL AND NOTIFY [facility] OF DISCHARGE HOME AT [phone]. PT DID NOT QUALIFY FOR HOME OXYGEN. Tre Da Silva, CASE MANAGEMENT DCP- Discharge Planning Updated by [id number]: Tre Da Silva on 11/15/18 3:[address] Patient Name: AMELIA WARD Encounter No: [id number] : 1935 Primary Insurance: MEDICARE A & B Anticipated DC Date: 11-15-2018 Planned Disposition: Home with Home Health External Planned Provider: [facility] DCP follow-up note: CM SPOKE TO DR. PADGETT WHO ADVISED THAT PT CAN DISCHARGE HOME TODAY IF OXYGEN IS ARRANGED IF PT QUALIFIES AND NEEDS WALK TESTING. CM OBTAINED OXYGEN TESTING ORDERS, WAS ADVISED REPIRATORY THERAPIST WAS WORKING ON EXTUBATION AND WOULD TAKE CARE OF TESTING SHORTLY. CM MET WITH PT AND SPOUSE IN ROOM, PT INDICATES HE IS READY TO GO HOME. CM DISCUSSED PROCESS OF OXYGEN TESTING AND IF QUALIFIES, CM TO ARRANGE HOME OXYGEN. CM DISCUSSED AVAILABILITY OF HOME HEALTH, REHAB SERVICES AND OTHER MEDICAL EQUIPMENT. PT POINTS TO . PT'S SPOUSE PROVIDED WITH LISTINGS FOR MEDICAL EQUIPMENT PROVIDERS AND HOME HEALTH PROVIDERS. PT'S SPOUSE SIGNED CHOICE FOR [facility] AND [facility] FOR OXYGEN IF PT QUALIFIES. SPOUSE TO TRANSPORT HOME AT DISCHARGE. IMPORTANT MESSAGE FROM MEDICARE PROVIDED AND EXPLAINED. CM CALLED [facility] OFFICE, , SPOKE TO SHIRA WHO ACCEPTED REFERRAL FOR HOME HEALTH AND INSTRUCTED CM TO CALL WHEN PT DISCHARGES HOME. CM FAXED REFERRAL TO [facility] AT [phone]. FOR DISCHARGE FAX ORDER AND DISCHARGE INFORMATION TO [facility] OFFICE AT [phone], CALL AND NOTIFY [facility] OF DISCHARGE HOME AT [phone]. CM TO ARRANGE HOME AND PORTABLE OXYGENWITH [facility] PATIENT IF PT QUALIFIES DURING TESTING BY RESPIRATORY THERAPY PRIOR TO DISCHARGE HOME. Tre Da Silva, CASE MANAGEMENT DCP- Discharge Planning Updated by [id number]: Tre Da Silva on 11/14/18 3:[address] Patient Name: AMELIA WARD Admission Status: ER Accout number: [id number] Admission Date: 11-13-2018 : 1935 Admission Diagnosis: Attending: JARETH PADGETT Current LOS: 1 Anticipated DC Date: Planned Disposition: Home Primary Insurance: MEDICARE A & B Discharge Planning Comments: CM RECEIVED HOSPICE CONSULT ORDER, MET WITH PT AND FAMILY IN ROOM TO DISCUSS DISCHARGE PLANNING AND NEEDS. AMELIA WARD provided verbal consent to discuss current and ongoing needs with/in the presence of: SPOUSE AND CHILDREN WITH HEAD NOD. PT'S SPOUSE REPORTS PT LIVING AT HOME INDEPENDENTLY WITH HER UNTIL NOW. PT DID HAVE HER ASSISTANCE NEEDED WITH BATHING BUT WAS OTHER CA TAKING CARE OF HIMSELF. PT HAS CPAP WITH NO MEDICAL EQUIPMENT PROVIDER PREFERENCE. PT HAS NO OUTSIDE SERVICES ASSISTING IN THE HOME. CM DISCUSSED AVAILABILITY OF HOME HEALTH, REHAB SERVICES AND MEDICAL EQUIPMENT. CM DISCUSSED HOSPICE PROVIDERS AND LOCATIONS. PT'S DAUGHTER IS AGAINST HOSPICE, PT'S SPOUSE WANTS TO TALK TO THE DOCTOR ABOUT IT FURHTER. PT NODS UNDERSTANDING OF WHAT THE DOCTOR HAS TOLD HIM REGARDING HIS CARE. PT'S CHILDREN REPORT THEY MAY BE TAKING PT HOME AND WILL ASSIST WITH PT'S CARE IF THAT IS WHAT HE WANTS, WITH OR WITHOUT HOSPICE. PT'S CHILDREN WANTED TO MAKE SURE THAT PT'S SPOUSE GETS "EVERYTHING" WHEN PT PASSES AWAY ARE CONCERED THAT PT NEVER COMPLETED A WILL. CM EXPLAINED THAT THEY WOULD NEED TO SEEK ADVISE OF AN EXTENDED INSURANCE CLERK. PT AND SPOUSE TO CONSIDER OPTIONS AND WILL DISCUSS WITH FAMILY AND DOCTOR. CM PROVIDED PT AND FAMILY WITH CM CONTACT INFORMATION AND HOSPITAL TENNIS PROFESSIONAL INFORMATION. PT'S CHILDRED ARE TRACEE, SANJEEV AND GARRISON. CM WAITING PT AND FAMILY TO DISCUSS HOSPICE AND MAKE FURTHER DECISIONS FOR DISCHARGE PLANNING. Insurance Marketing Specialist: Tre Da Silva [facility] Discharge Planning Initial Assessment Updated by [id number]: Tre Da Silva on 11/14/18 4:33 pm * Is the patient Alert and Oriented? Yes * How many steps to enter\\exit or inside your home? * PCP DR. BIRD IN [place] * Pharmacy [facility] IN [place] * Preadmission Environment Home with Family * ADLs Partial Dependent * Partial ADLs (Assistance needed) Bathing * Equipment CPAP * Other Equipment NO MEDICAL EQUIPMENT PROVIDER PREFERENCE * List name and contact numbers for known caregivers / representatives who currently or will assist patient after discharge: DOC WARD, SPOUSE, * Verbal permission to speak to the caregivers and representatives has been obtained from the patient. Yes * Community resources currently utilized None * Please name any agencies selected above. NONE * Additional services required to return to the preadmission environment? Yes * Can the patient safely return to the preadmission environment? Yes * Has this patient been hospitalized within the prior 30 days at any hospital? No Coverage Notice Reviewer: [id number] Lauren Da Silva Notice Issued Date-Time: 11/15/2018 14:55 Notice Type: IM Discharge Notice Notice Delivered To: Family Member Relationship to Patient: Spouse Helium Arc Welder Name: DOC WARD Delivery Method: HAND - Hand Delivered Amrita Days: Prior Verbal Notification: Recipient Understood Notice: Yes Recipient Signature: Yes Med Rec Note Co-signed by Attending: Coverage Notice Comment: Reviewer: [id number] Lauren Da Silva Notice Issued Date-Time: 11/15/2018 14:55 Notice Type: Patient Choice Letter Notice Delivered To: Family Member Relationship to Patient: Spouse Helium Arc Welder Name: DOC Delivery Method: HAND - Hand Delivered Amrita Days: Prior Verbal Notification: Recipient Understood Notice: Yes Recipient Signature: Yes Med Rec Note Co-signed by Attending: Coverage Notice Comment: [facility] FOR MEDICAL EQUIPMENT Last DP export: 11/16/18 8:32 a Patient Name: AMELIA WARD Page 48807 at 1007 All edits/amendments must be made on the electronic document DICTATION DATE: 11/16/18 [facility] CATALYST OPERATOR: ALBERT 11/16/18 [facility] RPT#: [id number] DC DATE: STATUS: ADM IN [facility] [address] [place] [address] END OF REPORT
--- NOTE | 2018-11-16 10:25 | NUR ---
TENORIO CATH REMOVED WITH OUT DIFCULTY.
--- NOTE | 2018-11-16 12:00 | NUR ---
I have reviewed this patient and I concur with the Shift Assessment completed by the Licensed Practical Nurse today this shift.
--- NOTE | 2018-11-16 12:55 | NUR ---
IV DCD WITH TP INTACT. INSTRUCTIOS GIVEN TO PT AND FAMILY TO PRIVATE CAR PER WHEELCHAIR
--- NOTE | 2018-11-16 16:03 | MORECARE ---
CASE MANAGEMENT DISCHARGE SUMMARY PATIENT: AMELIA WARD UNIT: [id number] ADM DATE: 11/13/18 AGE: 83 : 37 SEX: M ROOM/BED: D.4678 AUTHOR: DELONTE,DOC PHYSICIAN: REFERRING PHYSICIAN: JARETH PADGETT MD DATE OF SERVICE: 11/16/18 Discharge Plan Patient Name: AMELIA WARD Facility: [facility]:[place] : 1935 Planned Disposition: Home with Home Health Anticipated Discharge Date: 11/16/18 Discharge Date: 11/16/2018 Expected LOS: 3 Initial Reviewer: [email or web address] Initial Review Date: 11/13/2018 Generated: 11/16/18 5:03 pm Comments DCP- Discharge Planning Updated by [email or web address]: Tre Arreola on 11/16/18 2:[address] Patient Name: AMELIA WARD Encounter No: [id number] : 1935 Primary Insurance: MEDICARE A & B Anticipated DC Date: 11-15-2018 Planned Disposition: Home with Home Health External Planned Provider:[facility] DCP follow-up note: CM SPOKE TO OF RESPIRATORY, ASKED FOR HOME OXYGEN TESTING THE ORDER WAS NOT COMPLETED YESTERDAY AFTERNOON. [place] COMPLETED TESTING, PT WAS 97% ON ROOM AIR WITH AMBULATION, DID NOT QUALIFY FOR HOME OXYGEN. PT HAS BEEN ACCEPTED BY [facility], [place] OFFICE, . FOR DISCHARGE FAX ORDER AND DISCHARGE INFORMATION TO [facility] OFF[facility] AT [phone], CALL AND NOTIFY [facility] OF DISCHARGE HOME AT [phone]. PT DID NOT QUALIFY FOR HOME OXYGEN. Tre Arreola CASE MANAGEMENT Appended by Tre Arreola on 11/16/2018 15:59 CDT: CM RECEIVED DISCHARGE ORDER, FAXED ORDER AND DISCHARGE INFORMATION TO [facility] OFFICE AT [phone], CALLED AND NOTIFIED BELKYS OF [facility] OF DISCHARGE HOME AT [phone]. PT DID NOT QUALIFY FOR HOME OXYGEN. PT AND FAMILY NOTIFIED, DENIES FURTHER NEEDS, FAMILY HERE TO TRANSPORT HOME, [employer]IST NURSE NOTIFIED. TRE ARREOLA CASE MANAGEMENT Tre [place], CASE MANAGEMENT DCP- Discharge Planning Updated by [id number]: Tre Arreola on 11/15/18 3:[address] Patient Name: AMELIA WARD Encounter No: [id number] : 1935 Primary Insurance: MEDICARE A & B Anticipated DC Date: 11-15-2018 Planned Disposition: Home with Home Health External Planned Provider: [facility] DCP follow-up note: CM SPOKE TO DR. PADGETT WHO ADVISED THAT PT CAN DISCHARGE HOME TODAY IF OXYGEN IS ARRANGED IF PT QUALIFIES AND NEEDS WALK TESTING. CM OBTAINED OXYGEN TESTING ORDERS, WAS ADVISED REPIRATORY THERAPIST WAS WORKING ON EXTUBATION AND WOULD TAKE CARE OF TESTING SHORTLY. CM MET WITH PT AND SPOUSE IN ROOM, PT INDICATES HE IS READY TO GO HOME. CM DISCUSSED PROCESS OF OXYGEN TESTING AND IF QUALIFIES, CM TO ARRANGE HOME OXYGEN. CM DISCUSSED AVAILABILITY OF HOME HEALTH, REHAB SERVICES AND OTHER MEDICAL EQUIPMENT. PT POINTS TO . PT'S SPOUSE PROVIDED WITH LISTINGS FOR MEDICAL EQUIPMENT PROVIDERS AND HOME HEALTH PROVIDERS. PT'S SPOUSE SIGNED CHOICE FOR [facility] AND [facility] [place] PATIENT FOR OXYGEN IF PT QUALIFIES. SPOUSE TO TRANSPORT HOME AT DISCHARGE. IMPORTANT MESSAGE FROM MEDICARE PROVIDED AND EXPLAINED. CM CALLED [facility], [place] OFFICE, , SPOKE TO SHIRA WHO ACCEPTED REFERRAL FOR HOME HEALTH AND INSTRUCTED CM TO CALL WHEN PT DISCHARGES HOME. CM FAXED REFERRAL TO [facility] AT [phone]. FOR DISCHARGE FAX ORDER AND DISCHARGE INFORMATION TO [facility] OFFICE AT [phone], CALL AND NOTIFY [facility] OF DISCHARGE HOME AT [phone]. CM TO ARRANGE HOME AND PORTABLE OXYGENWITH [facility] PATIENT IF PT QUALIFIES DURING TESTING BY RESPIRATORY THERAPY PRIOR TO DISCHARGE HOME. RAYMOND Doran MANAGEMENT DCP- Discharge Planning Updated by [id number]: Tre Arreola on 11/14/18 3:[address] Patient Name: AMELIA WARD Admission Status: ER Accout number: [id number] Admission Date: 11-13-2018 : 1935 Admission Diagnosis: Attending: JARETH PADGETT Current LOS: 1 Anticipated DC Date: Planned Disposition: Home Primary Insurance: MEDICARE A & B Discharge Planning Comments: CM RECEIVED HOSPICE CONSULT ORDER, MET WITH PT AND FAMILY IN ROOM TO DISCUSS DISCHARGE PLANNING AND NEEDS. AMELIA WARD provided verbal consent to discuss current and ongoing needs with/in the presence of: SPOUSE AND CHILDREN WITH HEAD NOD. PT'S SPOUSE REPORTS PT LIVING AT HOME INDEPENDENTLY WITH HER UNTIL NOW. PT DID HAVE HER ASSISTANCE NEEDED WITH BATHING BUT WAS OTHER CA TAKING CARE OF HIMSELF. PT HAS CPAP WITH NO MEDICAL EQUIPMENT PROVIDER PREFERENCE. PT HAS NO OUTSIDE SERVICES ASSISTING IN THE HOME. CM DISCUSSED AVAILABILITY OF HOME HEALTH, REHAB SERVICES AND MEDICAL EQUIPMENT. CM DISCUSSED HOSPICE PROVIDERS AND LOCATIONS. PT'S DAUGHTER IS AGAINST HOSPICE, PT'S SPOUSE WANTS TO TALK TO THE DOCTOR ABOUT IT FURHTER. PT NODS UNDERSTANDING OF WHAT THE DOCTOR HAS TOLD HIM REGARDING HIS CARE. PT'S CHILDREN REPORT THEY MAY BE TAKING PT HOME AND WILL ASSIST WITH PT'S CARE IF THAT IS WHAT HE WANTS, WITH OR WITHOUT HOSPICE. PT'S CHILDREN WANTED TO MAKE SURE THAT PT'S SPOUSE GETS "EVERYTHING" WHEN PT PASSES AWAY ARE CONCERED THAT PT NEVER COMPLETED A WILL. CM EXPLAINED THAT THEY WOULD NEED TO SEEK [employer]VISE OF AN GROUNDSKEEPING MAINTENANCE. PT AND SPOUSE TO CONSIDER OPTIONS AND WILL DISCUSS WITH FAMILY AND DOCTOR. CM PROVIDED PT AND FAMILY WITH CM CONTACT INFORMATION AND HOSPITAL HAND SOLE SEWER INFORMATION. PT'S CHILDRED ARE [place], [place]EE[place] AND [place]. CM WAITING PT AND FAMILY TO DISCUSS HOSPICE AND MAKE FURTHER DECISIONS FOR DISCHARGE PLANNING. Cigarette Roller: Tre Arreola [facility] - Discharge Planning Initial Assessment Updated by [email or web address]: Tre Arreola on 11/14/18 4:33 pm * Is the patient Alert and Oriented? Yes * How many steps to enter\\exit or inside your home? * PCP DR. BIRD IN [place] * Pharmacy [facility] IN [place] * Preadmission Environment Home with Family * ADLs Partial Dependent * Partial ADLs (Assistance needed) Bathing * Equipment CPAP * Other Equipment NO MEDICAL EQUIPMENT PROVIDER PREFERENCE * List name and contact numbers for known caregivers / representatives who currently or will assist patient after discharge: DOC WARD, SPOUSE, * Verbal permission to speak to the caregivers and representatives has been obtained from the patient. Yes * Community resources currently utilized None * Please name any agencies selected above. NONE * Additional services required to return to the preadmission environment? Yes * Can the patient safely return to the preadmission environment? Yes * Has this patient been hospitalized within the prior 30 days at any hospital? No Coverage Notice Reviewer: [id number] Arreola Notice Issued Date-Time: 11/15/2018 14:55 Notice Type: IM Discharge Notice Notice Delivered To: Family Member Relationship to Patient: Spouse Painting Department Supervisor Name: DOC WARD Delivery Method: HAND - Hand Delivered Amrita Days: Prior Verbal Notification: Recipient Understood Notice: Yes Recipient Signature: Yes Med Rec Note Co-signed by Attending: Coverage Notice Comment: Reviewer: [id number] Arreola Notice Issued Date-Time: 11/15/2018 14:55 Notice Type: Patient Choice Letter Notice Delivered To: Family Member Relationship to Patient: Spouse Painting Department Supervisor Name: DOC Delivery Method: HAND - Hand Delivered Amrita Days: Prior Verbal Notification: Recipient Understood Notice: Yes Recipient Signature: Yes Med Rec Note Co-signed by Attending: Coverage Notice Comment: [facility] PATIENT FOR MEDICAL EQUIPMENT Last DP export: 11/16/18 9:07 a Patient Name: AMELIA WARD Page [id number] at 1603 All edits/amendments must be made on the electronic document DICTATION DATE: 11/16/18 1603 OVEN WORKER: ALBERT 11/16/18 1603 RPT#: [id number] DC DATE:11/16/18 STATUS: DIS IN [facility] [address] [place] [address] END OF REPORT
--- NOTE | 2018-11-21 14:26 | EC ---
PATIENT:AMELIA WARD DATE OF SERVICE: 11/13/18 SEX: M MEDICAL RECORD: [id number] DATE OF : [birth year] LOCATION:D.M2 D.211 AGE OF PATIENT: 83 ADMISSION DATE: 11/13/18 REFERRING PHYSICIAN: INTERPRETING PHYSICIAN: MIN GEORGE MD ECHOCARDIOGRAM REPORT ECHO CHARGES 4 ECHO COMPLETE Date: 11/13/18 CLINICAL DIAGNOSIS: CHF ECHOCARDIOGRAPHIC MEASUREMENTS (adult normal given) AC root (d.<3.7cm) 3.8 cm LV Septum d (<1.2 cm> 1.4 cm Valve Excursion 1.6 cm LV Septum (systole) 1.6 cm Left Atria (s.<4.0cm> 4.2 cm LVPW d(<1.2cm) 1.5 cm RV (d.<2.3cm) 3.4 cm LVPW (sytole) 1.7 cm LV diastole(<5.6CM) 7.0 cm MV E-F(>70mm/sec) cm LV systole 5.3 cm LVOT Diameter 2.0 cm MV exc.(>10mm) 1.3 cm Est.ejection fraction (50-75%) % DOPPLER: LVIT cm/sec A 59.0 cm/sec E 72.0 cm/sec LA cm/sec RVSP 15 mmHg LVOT 66 cm/sec AOP1/2T 672 m/s Asc. Ao 87 cm/sec RVOT 78 cm/sec RA cm/sec PA 66 cm/sec AV Gradient Peak 3.03 mmHg AV Mean 1.51 mmHg AV Area 2.6 cm MV Gradient Peak 2.93 mmHg MV Mean 1.10 mmHg MV Area cm COMMENTS: Professor Of Biochemistry: Chair Car Attendant: Ronny Woods TAPE# 3 PACS Pericardial Effusion N DATE OF SERVICE: Adequate 2D, color flow, spectral Doppler, and M-Mode. LVH is present. LV internal dimensions are dilated. 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 Aortic valve sclerosis without stenosis by Doppler interrogation. Left atrium mildly dilated at 4.2 cm. Mitral valve shows no prolapse. Mild MR. Right-sided chambers grossly normal. Mild TR. TRANSINT:[id number] Voice Confirmation ID: [id number] DOCUMENT ID: [id number] ECHOCARDIOGRAM REPORT [id number] AMELIA WARD MIN GEORGE MD at 1426 CC: [id number] DICTATION DATE: 11/14/18 0811 RN PROCEDURE: 11/14/18 1127 DIS IN 11/16/18 [place] [id number] [place] [address]
== END 2018-11-16 13:04 | disposition home health service (06) | DRG 291 ==
LOC: D.ER 02:46 → D.M2 03:10
PROVIDERS: Emergency Medicine; ADMIT Internal Medicine Nephrology; ATTEND Internal Medicine Nephrology
DX: I11.0 Hypertensive heart disease with heart failure (principal); I63.89 Other cerebral infarction; R40.2224 Coma scale, best verbal response, incomprehensible words, 24 hours or more after hospital admission; N17.9 Acute kidney failure, unspecified; G81.91 Hemiplegia, unspecified affecting right dominant side; I50.23 Acute on chronic systolic (congestive) heart failure; E87.6 Hypokalemia; D64.9 Anemia, unspecified; E78.5 Hyperlipidemia, unspecified; I25.10 Atherosclerotic heart disease of native coronary artery without angina pectoris; R40.2134 Coma scale, eyes open, to sound, 24 hours or more after hospital admission; R40.2364 Coma scale, best motor response, obeys commands, 24 hours or more after hospital admission; Z66 Do not resuscitate; Z85.46 Personal history of malignant neoplasm of prostate